=== PATIENT | male | born 1975 | race Caucasian/White ===

== ENCOUNTER 2018-07-04 07:34 | Emergency (ER) | payer OTHER ==
[~2018-07-04] VITALS: Ht 172.7 cm; Wt 106.1 kg
[2018-07-04] MEDS ORDERED: CELEXA40 MG PO (07:39)
[2018-07-04] MEDS ORDERED: CYCLOBENZAPRINE10 MG PO (08:32)
[2018-07-04] MEDS ORDERED: PREDNISONE50 MG PO (08:32)
== END 2018-07-04 08:36 | disposition home or self-care (01) ==
LOC: ED 07:34
DX: M54.5 Low back pain (principal); E66.9 Obesity, unspecified; F17.200 Nicotine dependence, unspecified, uncomplicated; Z98.890 Other specified postprocedural states; Z79.899 Other long term (current) drug therapy; Z93.3 Colostomy status